=== PATIENT | female | born 1965 | race Caucasian/White ===

== ENCOUNTER 2019-05-30 08:29 | Day surgery (SDC) | payer OTHER ==
[~2019-05-30] VITALS: Ht 160 cm; Wt 117.0 kg
[~2019-05-30 08:29] MED LIST: ACET-1157; ALBUTEROL INH; NEXIUM PO
[2019-05-30 09:24] VITALS: Ht 160 cm; Wt 117.0 kg
[2019-05-30 09:27] VITALS: BP 130/74; PULSE 71; RESP 18
[2019-05-30] MEDS ORDERED: PROPOFOL 20 ML ONE (09:44)
[2019-05-30] MEDS ORDERED: LIDOCAINE 100 MG SYRINGE ONE (09:44)
[2019-05-30 10:34] VITALS: BP 120/79; PULSE 72; RESP 12
== END 2019-05-30 15:04 | disposition home or self-care (01) ==
LOC: GIL 08:29
PROVIDERS: ATTEND Internal Medicine Gastroenterology
DX: Z12.11 Encounter for screening for malignant neoplasm of colon (principal); K64.8 Other hemorrhoids; K57.30 Diverticulosis of large intestine without perforation or abscess without bleeding
CPT/HCPCS: 45378; J2001; Z7610